=== PATIENT | male | born 1980 | race Caucasian/White ===

== ENCOUNTER 2020-03-11 18:19 | Emergency (ER) | payer OTHER ==
[~2020-03-11] VITALS: Ht 172.7 cm; Wt 81.6 kg
[2020-03-11 18:22] VITALS: Ht 172.7 cm; Wt 81.6 kg
[2020-03-11 19:37] LABS: BASOPHIL % 0.2 % (0-2); PLATELET COUNT 350 x10^3mcL (130-400); RED CELL DISTRIBUTION WIDTH 13.8 % (11.5-14.5)
[2020-03-11 19:42] LABS: CALCIUM 9.3 mg/dL (8.5-10.1); CARBON DIOXIDE 24.5 mmol/L (21-32); CHLORIDE SERUM 106 mmol/L (98-107); CREATININE SERUM 1.2 mg/dL (0.7-1.3); GFR1 > 60 mL/min; GLUCOSE SERUM 113 mg/dL (74-106); POTASSIUM SERUM 3.6 mmol/L (3.5-5.1); SODIUM SERUM 141 mmol/L (136-145)
[2020-03-11 19:47] LABS: ALKALINE PHOSPHATASE 75 U/L (46-116); ALT/SGPT 22 U/L (16-63); AST/SGOT 16 U/L (15-37); BILIRUBIN TOTAL 0.5 mg/dL (0.20-1.00)
[2020-03-11 19:57] LABS: T3 TOTAL 1.47 ng/mL
[2020-03-11 19:58] LABS: FREE T4 1.29 ng/dL (0.76-1.46); T4(THYROXINE) 10.5 ug/dL (4.7-13.3)
[2020-03-11 21:04] VITALS: BP 126/76
[2020-03-11 21:18] LABS: AMPHETAMINE QUAL UR NONE DETECTED (See below)
== END 2020-03-11 21:04 | disposition home or self-care (01) ==
LOC: ED 18:19
PROVIDERS: Emergency Medicine
DX: M79.10 Myalgia, unspecified site (principal); R63.0 Anorexia; R53.83 Other fatigue; Z20.828 Contact with and (suspected) exposure to other viral communicable diseases
CPT/HCPCS: 84439; Q0162; U0003